=== PATIENT | male | born 1955 | race Caucasian/White ===

== ENCOUNTER 2016-05-03 06:05 | Day surgery (SDC) | payer BC, OTHER ==
[2016-05-02 11:32] VITALS: BMI 26.2
[~2016-05-03] VITALS: Ht 167.6 cm; Wt 71.2 kg
[2016-05-03] VITALS (13 sets, daily range): BP systolic 124–154; BP diastolic 78–91; PULSE 60–87; RESP 7–22; Ht 167.6 cm; Wt 71.2 kg
[~2016-05-03 06:05] MED LIST: ASPI-664 PO; VALS160T20 PO
[2016-05-03 06:39] LABS: BASOPHILS % 0.5 % (0.0-2.0); EOSINOPHILS # 0.3 10^3/ul (0.0-0.5); EOSINOPHILS % 3.6 % (0.0-7.0); HEMATOCRIT 42.7 % (42.0-52.0); HEMOGLOBIN 14.7 g/dl (14.0-18.0); LYMPHOCYTES # 2.9 10^3/ul (0.8-2.9); LYMPHOCYTES % 34.1 % (15.0-51.0); MEAN CORPUSCULAR HEMOGLOBIN 30.4 pg (29.0-33.0); MEAN CORPUSCULAR HGB CONC 34.5 g/dl (32.0-37.0); MEAN PLATELET VOLUME 9.3 fl (7.4-10.4); MONOCYTE # 0.7 10^3/ul (0.3-0.9); MONOCYTES % 7.7 % (0.0-11.0); NEUTROPHIL # 4.6 10^3/ul (1.6-7.5); NEUTROPHILS % 54.1 % (39.0-77.0); PLATELET COUNT 200 10^3/UL (140-440); RED BLOOD COUNT 4.85 10^6/ul (4.70-6.10); RED CELL DISTRIBUTION WIDTH 14.2 % (11.5-14.5); UNCORRECTED WBC 8.6 10^3/ul (4.8-10.8); WHITE BLOOD COUNT 8.6 10^3/ul (4.8-10.8)
[2016-05-03 06:49] LABS: INR 0.91; PROTIME 12.2 Sec (12.2-14.2)
[2016-05-03 06:50] LABS: PARTIAL THROMBOPLASTIN TIME 31.1 Sec (25.0-35.0)
[2016-05-03 06:56] LABS: CALCIUM 9.5 mg/dl (8.4-10.2); CREATININE 0.89 mg/dl (0.61-1.24); POTASSIUM 4.2 mmol/L (3.5-5.1)
[2016-05-03 06:57] LABS: CONDITION 1
[2016-05-03] MEDS ORDERED: IOHEXOL 300MG/ML 30 ML BTL ONE (08:04)
[2016-05-03] MEDS ORDERED: PROPOFOL 20 ML ONE (08:28)
[2016-05-03] MEDS ORDERED: SUCCINYLCHOLINE CHLORIDE 100 MG/5 ML SYG IV ONE (08:28)
[2016-05-03] MEDS ORDERED: MIDAZOLAM 1 MG/ML 2 ML INJ ONE (08:29)
[2016-05-03] MEDS ORDERED: ONDANSETRON 4 MG INJ IV PRN (09:00)
[2016-05-03] MEDS ORDERED: DIPHENHYDRAMINE 50 MG INJ IV PRN (09:00)
[2016-05-03] MEDS ORDERED: HYDROmorphONE (0.2 MG/ML) 10ML SYG IV PRN ×3 (09:00)
[2016-05-03] MEDS ORDERED: MEPERIDINE 25 MG INJ IV PRN (09:00)
--- NOTE | 2016-05-03 10:24 | RADRPT ---
PROCEDURE: Intraoperative imaging for ERCP with fluoroscopy. CLINICAL INDICATION: Right upper quadrant pain. Intraoperative. TECHNIQUE: 8 images of the right upper quadrant of the abdomen were obtained in the operating room with an image intensifier. No radiologist was in attendance. 25.3 seconds of fluoroscopy time was used. COMPARISON: No prior study is available for comparison. FINDINGS: Images demonstrate the endoscope in position. Surgical clips are present in the right upper quadran t. The initial images demonstrate a stent in the common bile duct. Subsequent images demonstrate s tent removal, injection of contrast into the common bile duct, and a balloon sweep. IMPRESSION: 1. ERCP as described above. RPTAT: QQ .Brian Carranza MD, Date Time Electronically viewed and signed by .Brian Carranza MD, on 05/03/2016 10:24 .R/
--- NOTE | 2016-05-07 07:45 | GILP ---
DATE OF PROCEDURE: 05/03/2016 NAME OF PROCEDURE: ERCP, removal of common bile duct stent, removal of common bile duct stone. PREOPERATIVE DIAGNOSES: 1. Common bile duct stent in place. 2. Possible common bile duct stones. POSTOPERATIVE DIAGNOSES: 1. Common bile duct stent in place. 2. Possible common bile duct stones. DESCRIPTION OF PROCEDURE: After the informed written consent was obtained, the patient was intubate d by anesthesiologist. While the patient was in prone position, Olympus video side-viewing duodenos cope was inserted into the oropharynx, then into the esophagus, subsequently into the stomach and du odenum. There is evidence of a CBD stent noted in place. At this time, a polypectomy snare was ins erted through the scope and the stent was grabbed and then brought out through the mouth along with the endoscope. At this time the scope was reintroduced and the cannulation was performed with the h elp of a stone extraction balloon and the filling defects were noted. By balloon sweeping, 2 stones were removed from the common bile duct and also sludge was removed. At the end of the procedure, f urther cholangiogram did not show any more filling defect; hence, at this time, procedure was termin ated. PLAN: Follow the patient in the office with liver functions. Dictated By: MARYELLEN PEREZ/ONEIL Conf#: [id number] DID#: [id number]
== END 2016-05-03 10:30 | disposition home or self-care (01) ==
LOC: SDS 06:05
PROVIDERS: ATTEND Internal Medicine Gastroenterology
DX: K80.50 Calculus of bile duct without cholangitis or cholecystitis without obstruction (principal); I10 Essential (primary) hypertension
CPT/HCPCS: 43264; 74330; 80048; 85025; 85610; 85730; J0330; J2250; Q9967